=== PATIENT | female | born 1985 | race Caucasian/White ===

== ENCOUNTER 2017-03-26 19:33 | Inpatient (IN) | payer OTHER ==
[~2017-03-26] VITALS: Ht 170.2 cm; Wt 65.5 kg
--- NOTE | ~2017-03-26 | CT2 ---
[facility] A Service of [facility] & [facility] RADIOLOGY TEXT RESULTS PATIENT: IVETH HENDRIX LOCATION: C2A 229-01 : 85 UNIT #: [id number] AGE: [address]: Simon High MD SEX: F ORDER DR: [id number] [facility] [address] [facility]. [place], [place] [address] [id number] I MR#: [id number] #: [id number] NAME: IVETH HENDRIX : 1985 SEX: F STUDY DATE/TIME: 03/26/2017 22:30 UNIT: C2A ROOM: 229 STUDY DESCRIPTION: CT Abd and Pelv W Cont Attending Physician: Simon High M.D. Ordering Physician: Teodoro Horton M.D. Primary Care Physician: No Primary Care Physician MEDICAL IMAGING REPORT This report is preliminary unless electronic signature is present EXAM CT abdomen and pelvis, 03/26, 22:30. INDICATIONS Upper abdominal pain with nausea and vomiting over the last 4 days. TECHNIQUE Axial images were obtained through the abdomen and pelvis following IV contrast administration. Multiplanar reformats were obtained. This CT exam was performed with one or more of the following radiation dose reduction techniques: automatic exposure control, adjustment of mA and/or kV according to patient size, and iterative reconstruction. COMPARISON Comparison made with 05/02/2016. FINDINGS ABDOMEN: Lung bases are clear. Gallbladder unremarkable. No biliary obstruction. Solid abdominal organs are normal. Unopacified GI tract is normal. No free fluid. No adenopathy. PELVIS: Urinary bladder is normal. No free fluid is seen. Solid pelvic organs are normal. The unopacified GI tract is within normal limits as well. The patient has bilateral L4 pars defects. The disc bulges are noted at L4-5 and L5-S1. These appear unchanged. IMPRESSION 1. No acute findings in the abdomen or pelvis. 2. Grossly normal unopacified GI tract. The appendix is not clearly seen, but there is no evidence of appendicitis. 3. Gallbladder grossly normal. No biliary obstruction. 4. Chronic changes in the lumbar spine, stable from prior. [facility] A Service of [facility] & [facility] RADIOLOGY TEXT RESULTS PATIENT: IVETH HENDRIX LOCATION: [facility] 229-01 : 85 UNIT #: [id number] AGE: [address]: Simon High MD SEX: F ORDER DR: Dictated by... Arvin Sparks Jr., M.D. THIS IS AN ELECTRONICALLY VERIFIED REPORT Arvin Sparks Jr., M.D. at 03/27/2017 9:14 PM ESTHER/moo TD: 03/27/2017 14:10 JOB #: [id number] MEDICAL IMAGING REPORT Page 1 of 1 COPY
--- NOTE | ~2017-03-26 | DS ---
Unit #: [id number] #: [id number] Patient: IVETH HENDRIX [id number] [address] [place], [place] [address] [id number] I MR#: [id number] NAME: IVETH HENDRIX ROOM: 229 Age: 31 Sex: F Admission Date: 03/27/2017 : 1985 Discharge Date: 03/30/2017 Attending Physician: Simon High M.D. Primary Care Physician: No Primary Care Physician DISCHARGE SUMMARY REASON FOR ADMISSION Abdominal pain, nausea, vomiting. HISTORY OF PRESENT ILLNESS/HOSPITAL COURSE The patient is a very pleasant 31-year-old female admitted secondary to abdominal pain, intractable nausea/vomiting while at home. She was seen and evaluated in the emergency room, underwent CT abdomen and pelvis with contrast. There was no acute process which was noted. Secondary to intractable symptoms, she was placed on Med/Surg floor. Routine laboratory studies were ascertained. It was noted she had a mildly elevated lipase level, initially 66. She was initially treated under the premise of acute pancreatitis. Conservative management was initiated with PPI therapy and clear liquid diet. Unfortunately, she began developing increased abdominal pain and/or discomfort. This subsequently prompted an ultrasound of the gallbladder which did revert back to normal. There was a single gallstone which was noted but there was no evidence of acute cholecystitis. Consultation was placed to Dr. Felix of gastroenterology services. Dr. Felix recommended both HIDA scan with CCK to which she underwent on 03/29/2017 which reverted back with normal ejection fraction. Patient also underwent an upper GI endoscopy which was completely normal. This procedure was done on 03/28/2017. Laboratory studies from this morning show a lipase level of 65. She will be given a regular diet later this afternoon. If she tolerates well without difficulty, patient will be discharged home. She will get a prescription for Protonix at time of discharge. It was recommended that she eat small frequent meals. 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 She does use marijuana on a fairly frequent basis. This was seen on her initial urine tox screen. FINAL DISCHARGE DIAGNOSES 1. 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 2. Mild acute pancreatitis, resolving. 3. Abdominal pain, now improved. 4. Substance abuse. Unit #: [id number] #: [id number] Patient: IVETH HENDRIX DISCHARGE MEDICATION Protonix 40 mg p.o. daily. Dictated by... Hi Estes/anna marie TD: 04/02/2017 12:27 JOB #: [id number] DISCHARGE SUMMARY Page 1 of 1 X Simon High MD X DISCHARGE SUMMARY
--- NOTE | ~2017-03-26 | CO ---
Unit #: [id number] #: [id number] Patient: IVETH PRITCHARD [id number] [address] [address] [id number] I MR#: [id number] NAME: IVETH PRITCHARD ROOM: 229 Age: 31 Sex: F Admission Date: 03/27/2017 : 1985 Attending Physician: Simon High M.D. Primary Care Physician: Primary Care Physician No Consultation Date: 03/27/2017 CONSULTATION REPORT PRIMARY CARE PHYSICIAN No PCP. REASON FOR CONSULTATION Nausea, vomiting, and upper abdominal pain. HISTORY Ms. Pritchard is a 31-year-old white female. The patient lives at home with her friend. For the past 3 to 4 days, she has been having persistent nausea and vomiting, and upper abdominal pain with mild chills and low-grade fever. In addition, she has mentioned history of similar symptoms several years ago and was told that she had peptic ulcer disease. There is no history of weight loss nor any history of hematemesis, melena, or hematochezia. She denies any history of skin rash or aphthous ulcers in the mouth. PAST MEDICAL HISTORY Significant for peptic ulcer disease. PAST SURGICAL HISTORY Included spinal surgery x2. ALLERGIES She is allergic to penicillin and Ultram. HOME MEDICATIONS 800 mg ibuprofen on a daily basis, initially she started on Nexium. FAMILY HISTORY None of colon, pancreatic cancer, or liver disease. SOCIAL HISTORY She lives at home with her boyfriend, smokes about a pack of cigarettes per day, and does drink alcohol. Uses marijuana on a regular basis. REVIEW OF SYSTEMS Detailed review of organ systems is significant for nausea, vomiting, and upper abdominal pain. However, there are no history of fever, chills, or rigors. No history of headache, seizures, chest pain, or syncope. No history of cough, expectoration, or hemoptysis. No history of dysuria, hematuria, or pyuria. No history of focal seizures or extremity weakness. PHYSICAL EXAMINATION GENERAL: She is awake, alert, and oriented, and appears uncomfortable. Unit #: [id number] #: [id number] Patient: IVETH PRITCHARD VITAL SIGNS: Stable with a temperature of 98.4, pulse is 62 per minute, respiratory rate is 18, blood pressure 124/75. She weighs 144 pounds, which is close to her baseline weight. Her baseline weight has been about 150 pounds about a year ago. HEENT: She has no pallor, icterus, lymphadenopathy, or peripheral edema. CARDIOVASCULAR: Normal heart sounds. No murmurs. LUNGS: Auscultation over the lung christianson reveals normal breath sounds with good air entry. ABDOMEN: Soft with localized tenderness in the epigastric area. Liver and spleen are not palpable. Bowel sounds are normal. DIAGNOSTIC STUDIES LABORATORY RESULTS: Shows [place] [address], which is normalizing now. Hemoglobin and hematocrit and the platelet counts are normal. BUN and creatinine are also normal. Albumin is 4.8. LFTs are normal except for mild elevation of alkaline phosphatase. Amylase and lipase are borderline high at 70 and 66 respectively. IMAGING STUDIES: Ultrasound of the gallbladder does not show any biliary ductal dilation. The patient has single gallstone within the gallbladder. The common bile duct is upper limit of normal. CLINICAL IMPRESSION The patient with nausea and vomiting, and upper abdominal pain. This possibilities include cannabinoid hyperemesis syndrome versus peptic ulcer disease. A diagnostic endoscopy is warranted. If the latter is normal, consider a HIDA scan and also the patient was advised to discontinue marijuana. Thank you very much for asking me to see this pleasant woman. I appreciate the consult. Dictated by... Hi Stark/irene TD: 03/28/2017 13:30 JOB #: [id number] CC: Simon High M.D. CONSULTATION REPORT Page 1 of 1 X Roland Felix MD X CONSULTATION REPORT
--- NOTE | ~2017-03-26 | HP ---
Unit #: [id number] #: [id number] Patient: IVETH HENDRIX [id number] [address] [address] [id number] I MR#: [id number] NAME: IVETH HENDRIX ROOM: 18943 Age: 31 Sex: F Admission Date: 03/27/2017 : 1985 Attending Physician: Lauren Zee M.D. Primary Care Physician: No Primary Care Physician HISTORY AND PHYSICAL CHIEF COMPLAINT Abdominal pain with nausea and vomiting. HISTORY This pleasant 31-year-old female with possible history of peptic ulcer disease, is admitted for abdominal pain, nausea and vomiting. The patient was well until 4 days prior to admission when she developed intractable nonbloody nausea and vomiting, decreased p.o. intake, and epigastric pain associated with some chills. Her symptoms did not improve with home Nexium. She presented to this emergency department late last evening where labs are notable for elevated alk. phos, amylase and lipase. Also, white blood count of 15.3. CT scan of the abdomen is fairly unremarkable. PAST MEDICAL HISTORY 1. Possible peptic ulcer disease. 2. Lower spine surgery x2. ALLERGIES Penicillin and Ultram. HOME MEDICATIONS Daily ibuprofen, 800 mg, along with recent Nexium. FAMILY HISTORY Negative for gallbladder disease. SOCIAL HISTORY The patient lives with her boyfriend. Smokes about 1 pack per day of tobacco. Does not drink alcohol. Except for THC, denies illicit drug use. REVIEW OF SYSTEMS Notable for nausea, vomiting, abdominal pain, tobacco use, back surgery. All other systems were reviewed and otherwise negative. PHYSICAL EXAMINATION GENERAL: Uncomfortable appearing 31-year-old female. VITAL SIGNS: Temperature 98.2, pulse 88, respirations 15, blood pressure 137/86. O2 saturation is 100% on room air. HEENT: Eyes PERRLA. Extraocular muscles are intact. Pharynx is benign. NECK: Supple without adenopathy or thyromegaly. CHEST: Clear. CARDIAC: Normal S1 and S2 without S3, S4 or murmur. Unit #: [id number] #: [id number] Patient: IVETH HENDRIX ABDOMEN: Bowel sounds are present. Patient is most tender in the epigastric region without rebound, guarding. No hepatosplenomegaly or masses. EXTREMITIES: Without C, C or E. Pedal pulses are present. NEUROLOGIC EXAM: The patient is awake, alert, oriented. Cranial nerves are intact. Equal strength throughout. DIAGNOSTIC STUDIES LABORATORY: Admission labs - hematocrit is 45.3, white blood count is 15.3. Normal platelet count. SMA-12 is normal except for alk. phos. of 133. Amylase is 70 with a lipase of 55. Urinalysis - trace leukocyte esterase with 10-25 white cells but no bacteria. CT scan of the abdomen and pelvis. No acute disease. Chronic lumbar spine changes. ASSESSMENT 1. Abdominal pain, possibly related to mild pancreatitis. Rule out gallbladder disease as the cause for this. Rule out peptic ulcer disease. PLANS 1. IV fluids and supportive treatment. 2. Proton pump inhibitor. 3. Antibiotics and check gallbladder ultrasound. 4. Check beta hCG if not already checked. 5. Consultants depending on gallbladder ultrasound results. Dictated by Hi Parsons/anna marie TD: 03/27/2017 05:16 JOB #: [id number] HISTORY AND PHYSICAL Page 1 of 1 X Lauren Zee MD X HISTORY AND PHYSICAL
--- NOTE | ~2017-03-26 | NM21 ---
[facility] A Service of [facility] & [facility] RADIOLOGY TEXT RESULTS PATIENT: IVETH HENDRIX LOCATION: C2A 229-01 : 85 UNIT #: [id number] AGE: [address]: Simon High MD SEX: F ORDER DR: [id number] [facility] [address] [facility]. [place], [place] [address] [id number] I MR#: [id number] Acc #: [id number] NAME: IVETH HENDRIX : 1985 SEX: F STUDY DATE/TIME: 03/29/2017 8:49 UNIT: C2A ROOM: 229 STUDY DESCRIPTION: NM Hepatobiliary W GB Attending Physician: Simon High M.D. Ordering Physician: Roland Felix M.D. Primary Care Physician: Primary Care Physician No MEDICAL IMAGING REPORT This report is preliminary unless electronic signature is present EXAM Hepatobiliary scan INDICATIONS Epigastric abdominal pain, nausea, vomiting, beginning 5 days ago. PROCEDURE Patient administered 5.23 mCi technetium labeled Choletec, imaging of the upper abdomen performed for 60 minutes. Gallbladder stimulation was not performed secondary to presence of gallstones. COMPARISON Right upper quadrant ultrasound 03/27/2017 FINDINGS Liver shows symmetric extraction and excretion of radiotracer gallbladder fills by 30 minutes. Activity seen in the biliary system and bowel. IMPRESSION Normal non stimulated HIDA scan. Dictated by... Feliciano Devries M.D. THIS IS AN ELECTRONICALLY VERIFIED REPORT Feliciano Devries M.D. at 03/30/2017 12:10 PM EED/to TD: 03/29/2017 16:58 JOB #: [id number] MEDICAL IMAGING REPORT Page 1 of 1 COPY
--- NOTE | ~2017-03-26 | CO ---
Unit #: [id number] #: [id number] Patient: IVETH HENDRIX [id number] [address] [address] [id number] I MR#: [id number] NAME: IVETH HENDRIX ROOM: 229 Age: 31 Sex: F Admission Date: 03/27/2017 : 1985 Attending Physician: Simon High M.D. Primary Care Physician: Primary Care Physician No Consultation Date: 03/27/2017 CONSULTATION REPORT DICTATED FOR Roland Felix M.D. REASON FOR CONSULTATION Abdominal pain with nausea and vomiting. HISTORY OF PRESENT ILLNESS The patient is a very pleasant 31-year-old female with no significant past medical history. She has presented with 4 to 5 days history of persistent nausea, vomiting, and epigastric pain. Associated symptoms include subjective fever and chills. No anorexia, recent weight loss, change in bowel habit, or overt GI bleeding in the form of hematemesis, melena, or hematochezia. PAST MEDICAL HISTORY Chronic back pain and lower spine surgery x2. ALLERGIES Penicillin and Ultram. HOME MEDICATIONS Include ibuprofen and Nexium. FAMILY HISTORY None for colon, pancreatic cancer, or liver disease. SOCIAL HISTORY The patient lives with her boyfriend. Smokes a pack a day. Denies alcohol use. The patient does have chronic marijuana use although she has cut back to may be 2 or 3 times weekly. REVIEW OF SYSTEMS Detailed review of systems notable for nausea, vomiting, abdominal pain. All other systems are reviewed and are negative. PHYSICAL EXAMINATION GENERAL: The patient is awake, alert, and oriented, in no acute distress. VITAL SIGNS: Stable with temperature 98.4, blood pressure 124/75, heart rate 62, respirations 18. HEENT: There is no pallor. No scleral icterus. No lymphadenopathy. No peripheral edema. LUNGS: Clear to auscultation bilaterally. CARDIOVASCULAR: Regular rate and rhythm. ABDOMEN: Soft, nondistended, mild tenderness in epigastric region without Unit #: [id number] #: [id number] Patient: IVETH HENDRIX guarding. Liver and spleen are not palpable. Bowel sounds are normal. DIAGNOSTIC STUDIES LABORATORY RESULTS: Complete metabolic panel unremarkable except alkaline phosphatase mildly elevated at 133, amylase 70, lipase 55. CBC notable for WBC of 15.3, hemoglobin normal, platelet 235. Urinalysis notable for trace leukocyte esterase, 1+ protein, 10 to 25 wbc's. IMAGING STUDIES: Abdominal CT showed no acute findings. Abdominal ultrasound is pending at this time. CLINICAL IMPRESSION AND PLAN The patient with nausea, vomiting, and epigastric pain. The patient reports multiple episodes similar presentation in the past. Differentials in this patient includes cannabinoid hyperemesis syndrome, peptic ulcer disease, as well as gallbladder disease. Recommend an upper gastrointestinal endoscopy for definite diagnosis. Consider HIDA scan if EGD is normal and with persistent symptoms. Extensive discussion was held with the patient regarding importance of cessation of marijuana use. The patient and plan of care discussed in detail with Dr. Felix. Further recommendations to follow. Thank you very much for asking us to see this patient. We appreciate the consult. Dictated by.Wei. KAITLIN Zayas/irene TD: 03/29/2017 02:19 JOB #: [id number] CONSULTATION REPORT Page 1 of 1 X X CONSULTATION REPORT
--- NOTE | ~2017-03-26 | OR ---
Unit #: [id number] #: [id number] Patient: IVETH HENDRIX [id number] [address] [place], [place] [address] [id number] I MR#: [id number] NAME: IVETH HENDRIX ROOM: 229 Date of Procedure: 03/28/2017 Admission Date: 03/27/2017 Surgeon: Roland Felix M.D. : 1985 Attending Physician: Simon High M.D. Primary Care Physician: Primary Care Physician No OPERATIVE REPORT PREOPERATIVE DIAGNOSES Nausea, vomiting, and epigastric pain. PROCEDURES PERFORMED Upper gastrointestinal endoscopy. POSTOPERATIVE DIAGNOSIS Completely normal examination up to third part of duodenum. RECOMMENDATIONS We will obtain a HIDA scan tomorrow morning. If the HIDA scan is normal, the patient most likely has cannabinoid hyperemesis syndrome. If the HIDA scan is abnormal, the patient will require laparoscopic cholecystectomy. SEDATION USED MAC. DESCRIPTION OF PROCEDURE Following detailed explanation of the potential risks and complications of an upper endoscopy, namely perforation, bleeding, and complications related to sedation, the patient was brought to GI lab and laid in the left lateral decubitus position. Lubricated tip of the Olympus video upper endoscope was passed through bite block into the proximal esophagus under direct vision. The entire esophageal mucosa was examined and appeared normal. Z-line was nicely demarcated, there being no esophagitis or hiatus hernia. The scope was then advanced into the gastric cavity and the latter was insufflated. Mucosa of the fundus, body, and antrum was examined and appeared unremarkable. Pylorus was intubated with visualization of the normal duodenal bulb and second and third part of the duodenum. Upon withdrawal and retroflexion, incisura, cardia, and greater curve examined and no additional findings noted. The scope was then withdrawn. The patient returned to the recovery area. The patient tolerated the procedure without any postprocedure complications. Dictated by... Hi Stark/irene TD: 03/28/2017 11:55 JOB #: [id number] Unit #: [id number] #: [id number] Patient: IVETH HENDRIX CC: Lauren Zee M.D. OPERATIVE REPORT Page 1 of 1 X Roland Felix MD PROCEDURE OPERATIVE NOTE
--- NOTE | ~2017-03-26 | US67 ---
[facility] A Service [facility] RADIOLOGY TEXT RESULTS PATIENT: IVETH HENDRIX LOCATION: C2A 229- : 85 UNIT #: [id number] AGE: [address]: Simon High MD SEX: F ORDER DR: [id number] [id number] [facility]. [place], [place] [address] [id number] I MR#: [id number] Acc #: [id number] NAME: IVETH HENDRIX : 1985 SEX: F STUDY DATE/TIME: 03/27/2017 10:13 UNIT: C2A ROOM: 229 STUDY DESCRIPTION: US Gallbladder Attending Physician: Simon High M.D. Ordering Physician: Lauren Zee M.D. MEDICAL IMAGING REPORT This report is preliminary unless electronic signature is present EXAM Gallbladder ultrasound 03/27/2017 HISTORY Midline abdominal pain for [address] abdomen and pelvis with contrast 03/26/2017. FINDINGS Pancreas has a normal sonographic appearance. Pancreatic duct measures 3 mm which is within normal limits. Liver demonstrates normal homogeneous echotexture without focal or suspicious abnormality. Liver size is within normal limits measuring 12 cm in long axis. Main portal vein is patent. Intrahepatic IVC has an unremarkable rodrigues-scale appearance. IVC demonstrates color flow. Tiny non-shadowing gallstone is seen within gallbladder fundus. No abnormal gallbladder wall thickening or pericholecystic inflammation is seen. Right kidney measures 10 cm in length without focal cortical lesion, shadowing stone or hydronephrosis. Extrahepatic bile duct caliber is just slightly above upper limits of normal, 7 mm. No obstructing abnormality is seen and no intrahepatic biliary ductal dilation is evident. IMPRESSION 1. Single gallstone is present without sonographic evidence of cholecystitis. [facility] A Service of [facility] RADIOLOGY TEXT RESULTS PATIENT: IVETH HENDRIX LOCATION: C2A 229- : 85 UNIT #: [id number] AGE: [address]: Simon High MD SEX: F ORDER DR: 2. Common bile duct caliber is just slightly above upper limits of normal, but no obstructing abnormality is seen. There is no abnormal intrahepatic biliary ductal dilation. 3. Remainder of examination is within normal limits. Dictated by... Sarah Beth Sewell M.D. THIS IS AN ELECTRONICALLY VERIFIED REPORT Sarah Beth Sewell M.D. at 03/30/2017 8:33 AM CAMMY/abdi TD: 03/27/2017 18:02 JOB #: [id number] MEDICAL IMAGING REPORT Page 1 of 1 COPY
[~2017-03-26 19:33] MED LIST: METHADONE PO; PHENERGAN PO
[2017-03-26 21:28] LABS: BASOPHIL# 0.1 X10e3 (0-0.3); BASOPHIL% 0.4 % (0-2.5); DIFF IND YES; HEMATOCRIT 45.3 % (35.0-45.0); HEMOGLOBIN 15.2 gm/dL (12.0-16.0); LYMPHOCYTE# 2.3 X10e3 (1.0-3.5); LYMPHOCYTE% 15.1 % (17.0-45.0); MEAN CELL VOLUME 89.8 FL (83-96); MEAN CORPUSCULAR HGB CONC 33.5 g/dL (30-36); MEAN PLATELET VOLUME 8.4 FL (6.5-11.5); MONOCYTE# 0.6 X10e3 (0-1.0); MONOCYTE% 3.9 % (3.0-12.0); NEUTROPHIL# 12.3 X10e3 (1.5-7.1); NEUTROPHIL% 80.6 % (40-75); PLATELET COUNT 281 X10e3 (140-420); RED BLOOD COUNT 5.05 X10e (3.90-5.30); RED CELL DISTRIBUTION WIDTH 12.6 % (11.0-15.5); WHITE BLOOD COUNT 15.3 X10e3 (4.0-10.5)
[2017-03-26 21:43] LABS: ALBUMIN SERUM 4.8 g/dL (3.5-5.0); BILIRUBIN, DIRECT 0.1 mg/dL (0.0-0.2); BILIRUBIN,INDIRECT 0.9 mg/dL (0.0-0.9); BUN/CREATININE RATIO 22.5; CALCIUM SERUM 9.3 mg/dL (8.4-10.2); CREATININE SERUM 0.8 mg/dL (0.6-1.4); GLOM FILT RATE Estimated 98.3 mL/min (>60); POTASSIUM 3.5 mmol/L (3.5-5.1); PROTEIN TOTAL SERUM 8.2 g/dL (6.0-8.3)
[2017-03-26 21:58] LABS: PLATELET ESTIMATE NORMAL (NORMAL); RBC NORMAL YES
[2017-03-26 22:05] LABS: URINE SOURCE CLEAN CATCH
[2017-03-26 22:18] LABS: URINE APPEARANCE CLOUDY; URINE BILIRUBIN NEG (NEG); URINE BLOOD NEG (NEG); URINE COLOR DK YELLOW; URINE GLUCOSE NEG (NEG); URINE KETONE 2+ (NEG); URINE LEUKOCYTE ESTERASE TRACE (NEG); URINE NITRATE NEG (NEG); URINE PH 5.5 (5-8); URINE PROTEIN 1+ (NEG); URINE SPECIFIC GRAVITY 1.031 (1.003-1.035)
[2017-03-26 22:21] LABS: CULTURE INDICATED? YES; URINE BACTERIA AUWI NEG (NEGATIVE); URINE SQUAMOUS EPITHELIAL CELL FEW /[HPF]
[2017-03-27] MEDS ORDERED: PERCOCET 7.5-31 EACH PO (08:59)
[2017-03-27] MEDS ORDERED: IBUPROFEN800 MG PO (08:59)
[2017-03-28 05:18] LABS: HEMATOCRIT 37.9 % (35.0-45.0); MEAN CELL VOLUME 89.9 FL (83-96); MEAN CORPUSCULAR HEMOGLOBIN 30.4 PG (28-34); MEAN CORPUSCULAR HGB CONC 33.8 g/dL (30-36); MEAN PLATELET VOLUME 8.4 FL (6.5-11.5); RED BLOOD COUNT 4.21 X10e (3.90-5.30); RED CELL DISTRIBUTION WIDTH 12.5 % (11.0-15.5); WHITE BLOOD COUNT 10.2 X10e3 (4.0-10.5)
[2017-03-28 05:47] LABS: HEMOGLOBIN 12.8 gm/dL (12.0-16.0)
[2017-03-28 06:26] LABS: ALBUMIN SERUM 3.4 g/dL (3.5-5.0); BILIRUBIN,TOTAL 0.6 mg/dL (0.2-2.0); BUN/CREATININE RATIO 7.5; CALCIUM SERUM 8.3 mg/dL (8.4-10.2); CREATININE SERUM 0.8 mg/dL (0.6-1.4); GLOM FILT RATE Estimated 98.3 mL/min (>60); POTASSIUM 3.9 mmol/L (3.5-5.1); PROTEIN TOTAL SERUM 5.9 g/dL (6.0-8.3)
[2017-03-28 12:08] LABS: AMPHETAMINE NEG (NEG); BARBITURATES NEG (NEG); BENZODIAZEPINES NEG (NEG); COCAINE NEG (NEG); MARIJUANA POS (NEG); OPIATES POS (NEG); TRICYCLIC ANTIDEPRESSANTS NEG (NEG); U METHADONE NEG (NEG)
[2017-03-29 06:51] LABS: HEMATOCRIT 39.7 % (35.0-45.0); HEMOGLOBIN 13.1 gm/dL (12.0-16.0); MEAN CELL VOLUME 90.9 FL (83-96); MEAN PLATELET VOLUME 8.8 FL (6.5-11.5); RED BLOOD COUNT 4.36 X10e (3.90-5.30); RED CELL DISTRIBUTION WIDTH 12.6 % (11.0-15.5); WHITE BLOOD COUNT 11.8 X10e3 (4.0-10.5)
[2017-03-29 07:37] LABS: ALBUMIN SERUM 3.4 g/dL (3.5-5.0); ALKALINE PHOSPHATASE 100 U/L (32-92); ALT (SGPT) 6 U/L (10-40); AMYLASE 98 U/L (0-46); AST (SGOT) 14 U/L (10-42); BILIRUBIN,TOTAL 0.8 mg/dL (0.2-2.0); CALCIUM SERUM 8.3 mg/dL (8.4-10.2); CARBON DIOXIDE 24 mmol/L (22-31); CHLORIDE 107 mmol/L (100-111); CREATININE SERUM 0.7 mg/dL (0.6-1.4); GLOM FILT RATE Estimated 115.5 mL/min (>60); GLUCOSE FASTING 124 mg/dL (70-110); LIPASE 111 U/L (22-51); POTASSIUM 3.7 mmol/L (3.5-5.1); PROTEIN TOTAL SERUM 6.2 g/dL (6.0-8.3); SODIUM 135 mmol/L (135-145)
[2017-03-29 07:40] LABS: BLOOD UREA NITROGEN <5 mg/dL (9-23); BUN/CREATININE RATIO 7.14
[2017-03-30 05:26] LABS: HEMATOCRIT 39.4 % (35.0-45.0); HEMOGLOBIN 13.2 gm/dL (12.0-16.0); MEAN CELL VOLUME 89.2 FL (83-96); MEAN CORPUSCULAR HEMOGLOBIN 29.8 PG (28-34); MEAN CORPUSCULAR HGB CONC 33.4 g/dL (30-36); MEAN PLATELET VOLUME 8.6 FL (6.5-11.5); RED BLOOD COUNT 4.41 X10e (3.90-5.30); RED CELL DISTRIBUTION WIDTH 12.7 % (11.0-15.5); WHITE BLOOD COUNT 12.3 X10e3 (4.0-10.5)
[2017-03-30 06:24] LABS: ALBUMIN SERUM 3.4 g/dL (3.5-5.0); ALKALINE PHOSPHATASE 107 U/L (32-92); ALT (SGPT) 8 U/L (10-40); AST (SGOT) 12 U/L (10-42); BILIRUBIN,TOTAL 0.5 mg/dL (0.2-2.0); CALCIUM SERUM 8.6 mg/dL (8.4-10.2); CARBON DIOXIDE 24 mmol/L (22-31); CHLORIDE 104 mmol/L (100-111); CREATININE SERUM 0.8 mg/dL (0.6-1.4); GLOM FILT RATE Estimated 98.3 mL/min (>60); GLUCOSE FASTING 106 mg/dL (70-110); LIPASE 65 U/L (22-51); POTASSIUM 3.9 mmol/L (3.5-5.1); PROTEIN TOTAL SERUM 6.1 g/dL (6.0-8.3); SODIUM 133 mmol/L (135-145)
[2017-03-30 06:25] LABS: BLOOD UREA NITROGEN <5 mg/dL (9-23); BUN/CREATININE RATIO 6.25
[2017-03-30] MEDS ORDERED: PANTOPRAZOLE SO40 MG PO (18:41)
== END 2017-03-30 18:51 | disposition home or self-care (01) | DRG 440 ==
LOC: CED 19:33 → CEDOF 03-27 00:45 → C2A 03-27 00:45 → CEDOF 03-27 07:28 → C2A 03-27 08:01
PROVIDERS: Emergency Medicine; Family Medicine; Internal Medicine Gastroenterology
PROC: 0DJ08ZZ Inspection of Upper Intestinal Tract, Via Natural or Artificial Opening Endoscopic (ICD-10-PCS; principal; 2017-03-28 08:37)
DX: K85.90 Acute pancreatitis without necrosis or infection, unspecified (principal); F17.200 Nicotine dependence, unspecified, uncomplicated; F12.10 Cannabis abuse, uncomplicated; R11.10 Vomiting, unspecified; Z88.0 Allergy status to penicillin; Z88.8 Allergy status to other drugs, medicaments and biological substances
CPT/HCPCS: 36415; 74177; 76705; 78226; 80048; 80053; 80061; 80076; 80307; 81003; 82150; 83036; 83690; 84443; 84703; 85025; 85027; 86677; 87086; 96361; 96374; 96375; 99285; A9537; C9113; J2270; J2405; J2550; Q9967